=== PATIENT | female | born 1950 | race Caucasian/White ===

== ENCOUNTER 2016-11-05 10:06 | Day surgery (SDC) | payer OTHER ==
[2016-11-04 11:37] VITALS: BMI 17.2
[~2016-11-05 10:06] MED LIST: ALBUTEROL NEB (CONC) 2.5 MG/0.5 ML INHALATION ONE; ATROPINE SULFATE 0.4 MG/ML 1 ML VIAL IM ONE; LACTATED RINGERS 1,000 ML IV ONE; LIDOCAINE 1% 20 ML VIAL (10MG/ML) FOR IV START INTRADERMA PRN; LIDOCAINE 2% (PF) 20 MG/ML 10ML INHALATION ONE
[2016-11-05 10:52] VITALS: TEMP 98.1
[2016-11-05 10:52] LABS: Glucose,Whole Blood 134 mg/dL (75-99)
[2016-11-05] MEDS: LACTATED RINGERS 1,000 ML IV SCH ×2 (10:53→11:03)
[2016-11-05] MEDS ORDERED: fentaNYL (PF) 50 MCG/ML 2 ML AMP ONE (11:09)
[2016-11-05] MEDS ORDERED: LIDOCAINE 1% INJ 10MG/ML (20 ML MDV) ONE (11:09)
[2016-11-05] MEDS ORDERED: PROPOFOL 10 MG/ML 20 ML VIAL IV ONE (11:09)
[2016-11-05] MEDS ORDERED: GLYCOPYRROLATE 0.2 MG/ML 2 ML VIAL ONE (11:09)
[2016-11-05] MEDS ORDERED: KETAMINE 10 MG/ML 20 ML VIAL ONE (11:09)
[2016-11-05] MEDS ORDERED: MIDAZOLAM 2 MG/2 ML VIAL ONE (11:09)
[2016-11-05] MEDS ORDERED: LIDOCAINE 2% INJ 20 MG/ML INTRATRACH ONE (11:41)
[2016-11-05] MEDS ORDERED: SODIUM CHLORIDE 0.9% 2,000 ML IV ONE (11:44)
[2016-11-05 12:45] VITALS: RESP 16
[2016-11-05 13:16] VITALS: BP 115/74; PULSE 66
[2016-11-05 14:13] LABS: RBC, Body Fluid 1945 /uL
--- NOTE | 2016-11-05 15:47 | PCN ---
PROCEDURE PERFORMED: Bronchoscopy, airway examination, therapeutic lavage, BAL , right lower lobe brushes, right lower lobe. PREOP DIAGNOSIS: Pneumonia right lower lobe POSTOP DIAGNOSIS: Pneumonia right lower lobe. There was informed consent. There was universal time out. The patients procedure was done in room number one. There was general anesthesia provided by the [employer], Hina Daniels. After the patient was adequately sedated and being fully monitored. Bronchoscope was inserted into the right nostril. It passed through the right nasopharynx into the oropharynx. The hypopharynx was identified and topicalized. The hypopharyngeal structures including anterior commisure, true chords, false chords, arytenoids, piriform sinuses, right and left vallecula, epiglottis as well as the vallecula all appear normal. The glottic opening was topicalized. The bronchoscope was pushed through the glottic opening into the trachea. Trachea appeared normal. Tracheocarina was sharp. We topicalized the right main stem and left mainstem. The right upper lobe and its three segments, the right middle lobe and its two segments, right lower lobe and its five segments, the left upper lobe proper and its two segments, the lingula and its two segments and the left lower lobe and its four segments all appeared relatively normal. There was good visualization of all segments. There was just some very mild mucosa erythema and hyperemia. There were some secretions but not a lot. No dominant mass or tumor. The bronchoscope was wedge into the right lower lobe. Brushes were taken place. In addition, BAL took place in the right lower lobe. The patient tolerated the procedure well. The bronchoscope was withdrawn. There were no immediate complications. CRISTI
== END 2016-11-05 14:16 | disposition home or self-care (01) ==
LOC: ORWHC2ENDO 10:06
PROVIDERS: ATTEND Internal Medicine Critical Care Medicine
DX: J18.9 Pneumonia, unspecified organism (principal); J44.9 Chronic obstructive pulmonary disease, unspecified; K50.90 Crohn's disease, unspecified, without complications; K21.9 Gastro-esophageal reflux disease without esophagitis; K44.9 Diaphragmatic hernia without obstruction or gangrene; M41.9 Scoliosis, unspecified; E07.9 Disorder of thyroid, unspecified; N28.9 Disorder of kidney and ureter, unspecified; F17.200 Nicotine dependence, unspecified, uncomplicated; Z88.2 Allergy status to sulfonamides; Z88.8 Allergy status to other drugs, medicaments and biological substances; Z79.82 Long term (current) use of aspirin; Z79.899 Other long term (current) drug therapy; Z79.891 Long term (current) use of opiate analgesic; Z79.52 Long term (current) use of systemic steroids; Z88.7 Allergy status to serum and vaccine
CPT/HCPCS: 94640; 87798 ×4; 87496; 87498; 87529 ×2; 88104; 88108; 88305; 89050; 87252; 87502 ×2; 87070; 87205; 87116; 87102; 87077; 87186; 87206; 31623; 31624; J2001 ×3; J2250; J0461; J3010; J2704